=== PATIENT | male | born 1940 | race Caucasian/White ===

== ENCOUNTER → 2016-11-01 | Outpatient (CLI) | payer MEDICARE | END | disposition home or self-care (01) | LOC: EDT 09:00 | DX: E11.9 Type 2 diabetes mellitus without complications (principal); Z71.3 Dietary counseling and surveillance ==

== ENCOUNTER 2016-11-18 06:12 | Day surgery (SDC) | payer MEDICARE ==
[~2016-11-18] VITALS: Ht 188 cm; Wt 145.7 kg
--- NOTE | ~2016-11-18 | CATH ---
Cardiac Diagnostic Report Demographics Patient Name KAM Leigh Gender Male Date of 1940 Age 75 year(s) Patient Number [id number] Date of Study 11/18/2016 Visit Number [id number] Room Number Corporate ID Ht 187.96 cm Wt 146.51 kg Accession Number [id number] BSA 2.66 m kg/m Referring Gustavo Joiner MD Primary Physician Physician Jesus Lira MD Secondary Physician Physician Kwan Diagnostic Soraya PUENTES Assisting Physician Physician Kwan Interventional Soraya PUENTES Physician Manager Intelligence Physician Kwan Findings and Conclusions Diagnostic Findings and Conclusion 1. Severe 3 vessel CAD Diagnostic Recommendations 1. CT surgery consultation Procedure Description The patient was brought to the diagnostic cardiac catheterization laboratory in the fasting, non-sedated state. Informed consent was obtained in the written and verbal form after the risks and benefits were explained. The patient had no further questions and agreed to proceed. The planned puncture-incision site(s) were shaved and prepped with ChloraPrep and draped in the usual sterile manner. Conscious sedation, supplemental oxygen, and pain control medications were delivered by a registered nurse under physician guidance. Surface ECG rhythm, blood pressure measurement, and pulse oximetry were monitored throughout the procedure. Arterial access. The right radial access site was infiltrated with lidocaine. The vessel was entered with the Seldinger technique. A 6F sheath was advanced into the vessel and used for catheter placement. Radial cocktail administered per protocol. Unable to advance wire/catheter via radial approach, proceed to femoral approach. Arterial access. The right femoral access site was infiltrated with lidocaine. The vessel was entered with the Seldinger technique. A 5F sheath was advanced into the vessel and used for catheter placement. Selective left coronary angiography. A FL4 catheter was advanced into the left coronary vessel ostium under Fluoroscopic guidance. Contrast was injected by hand. Images were obtained in multiple projections. Left heart catheterization. A JR4 catheter was advanced across the aortic valve to the left ventricle under fluoroscopic guidance. Resting hemodynamics were obtained. Selective right coronary angiography. A JR4 catheter was advanced into the right coronary vessel ostium under fluoroscopic guidance. Contrast was injected by hand. Images were obtained in multiple projections. Radial arterial hemostasis was achieved with a TR band. Femoral arterial hemostasis was achieved with manual compression. The patient was transferred to outpatient recovery via cart accompanied by a nurse. The patient left the laboratory in stable condition. Diagnostic Cath Status: Elective Procedure Procedure Type Diagnostic procedure:Angiography:, Coronary Angios /[facility] Indications: Hyperlipidemia, Hypertension, Prior PCI with stent placement, Atrial fibrillation, Dyspnea, Obesity, Family history of coronary artery disease, Previous CT and Diabetes. The procedure was explained in detail to the patient. Risks, complications and alternative treatments were reviewed. Written consent was obtained. Medications Reviewed with Patient prior to Procedure. Complications: No Complication. Angiographic Findings Dominance: Right Cardiac Arteries and Lesion Findings LMCA: Abnormal. Lesion on LMCA: Distal subsection.30% stenosis . LAD: Abnormal. Lesion on Prox LAD: 80% stenosis .The lesion was heavily calcified. Lesion on Mid LAD: 70% stenosis . Lesion on Dist LAD: 40% stenosis . LCx: Abnormal. Lesion on Mid CX: 70% stenosis . Lesion on 1st Ob Shy% stenosis . RCA: Abnormal.There is a previous stent on Dist RCA. There is a previous stent on Mid RCA. Lesion on Prox RCA: Ostial.100% stenosis . Ramus: Abnormal. Lesion on Ramus: Proximal subsection.70% stenosis . Cardiac Collaterals - collateral flow from the Dist LAD to the Prox RCA. Coronary Tree Procedure Data Procedure Date Date: 11/18/2016Start: 07:59 End: 08:56 Entry Locations - Percutaneous access was performed through the Right Radial artery. A 6 Fr sheath was inserted. Hemostasis was successfully obtained using a TR band. - Percutaneous access was performed through the Right Femoral artery (Primary location). A 5 Fr sheath was inserted. Hemostasis was successfully obtained using Manual Compression. Procedure Medications Order and Administration + + +-------+-------+ !Time !Medication !Dosage !Route ! + + +-------+-------+ !11/18/2016 !Versed !1 mg !I.V. ! !08:01 ! ! ! ! + + +-------+-------+ !11/18/2016 !Fentanyl !25 mcg !I.V. ! !08:01 ! ! ! ! + + +-------+-------+ !11/18/2016 !Sodium Chloride !10 ml !I.V. ! !08:01 ! ! ! ! + + +-------+-------+ !11/18/2016 !SF Radial Cocktail: 200mcg Nitro, 2.5 mg ! !I.A. ! !08:07 !Verapamil, 5000u Heparin ! ! ! + + +-------+-------+ !11/18/2016 !Versed !1 mg !I.V. ! !08:08 ! ! ! ! + + +-------+-------+ !11/18/2016 !Fentanyl !25 mcg !I.V. ! !08:08 ! ! ! ! + + +-------+-------+ !11/18/2016 !Oxygen !2 l/min!NC ! !08:19 ! ! ! ! + + +-------+-------+ Devices Used - A6F TIG CATHETERwas used for:Coronary Angios.Unable to cannulate the vessel. - ACATH 5FR MULTIPACK CATHETERSwas used for:Coronary Angios. - ACATH 5FR MULTIPACK CATHETERSwas used for:LV Pressures. Contrast Material - Isovue 20070 ml Fluoroscopy Time: Diagnostic: 6:18 minutes. Total: 6:18 minutes. Fluoroscopy Dose: Diagnostic: 1166 mGy. Total: 1166 mGy. Estimated Blood Loss: 10 ml. Medical History Allergies - No known allergies. Risk Factors The patient risk factors include:prior PCI on 02/04/2003;obesity, treated hypercholesterolemia, treated hypertension, orally-treated diabetes mellitus, last creatinine: 1.2 mg/dl, creatinine clearance: 110.22 ml/min, dyslipidemia, former tobacco use, prior heart failure and prior CT . Admission Data Admission Date: 11/18/2016 Admission Time: 06:12 Insurance Payors: Medicare. Clinical Evaluation Leading to Procedure Diagnosed on 11/14/2016 12:00 . - Anti-anginal medications were prescribed during the past two weeks. The medication is: Beta Blockers. - The patient has been in a state of heart failure within the past two weeks. - The patient shows CHF symptoms of ODOM. - The reason for the patient's chemical laboratory scientist visit is evaluation of cardiomyopathy and/or evaluation of left ventricular systolic dysfunction. Hemodynamics Condition: Rest O2 Consumption: Estimated: 295.02Heart Rate: 59 bpm Pressures (mmHg) +-----+ + !Site !Pressure ! +-----+ + !AO !83/46 (60) ! +-----+ + !LV !102/12 ,20 ! +-----+ + !AO !90/44 (64) ! +-----+ + !LV !95/7 ,14 ! +-----+ + Valve Gradients and Areas + +---------+---------+---------+ +---------+ + !Valve !Peak !Mean !Area !Index !Flow !Source ! + +---------+---------+---------+ +---------+ + !Aortic !4 !5 ! ! ! ! ! + +---------+---------+---------+ +---------+ + !Aortic !4 !5 ! ! ! ! ! + +---------+---------+---------+ +---------+ + Shunts Oxygen Values O2 Capacity 214.88 O2 Consumption 295.02 Signatures
== END 2016-11-18 12:30 | disposition home or self-care (01) ==
LOC: SSS 06:12
DX: I25.10 Atherosclerotic heart disease of native coronary artery without angina pectoris (principal); I48.2 Chronic atrial fibrillation; I11.0 Hypertensive heart disease with heart failure; I50.32 Chronic diastolic (congestive) heart failure; I42.9 Cardiomyopathy, unspecified; M19.90 Unspecified osteoarthritis, unspecified site; E03.9 Hypothyroidism, unspecified; E66.9 Obesity, unspecified; Z79.82 Long term (current) use of aspirin; Z79.899 Other long term (current) drug therapy; Z96.651 Presence of right artificial knee joint; Z87.891 Personal history of nicotine dependence; Z96.643 Presence of artificial hip joint, bilateral

== ENCOUNTER → 2016-11-26 | Outpatient (CLI) | payer MEDICARE | END | disposition home or self-care (01) | LOC: RAD.S 12:51 | DX: Z01.818 Encounter for other preprocedural examination (principal); R06.02 Shortness of breath; J84.10 Pulmonary fibrosis, unspecified; I51.7 Cardiomegaly; I25.10 Atherosclerotic heart disease of native coronary artery without angina pectoris ==

== ENCOUNTER → 2016-11-29 | Outpatient (CLI) | payer MEDICARE | END | disposition home or self-care (01) | LOC: RAD.S 09:00 | DX: Z01.818 Encounter for other preprocedural examination (principal); R06.02 Shortness of breath; I25.10 Atherosclerotic heart disease of native coronary artery without angina pectoris; I51.7 Cardiomegaly; Q24.8 Other specified congenital malformations of heart ==

== ENCOUNTER → 2016-12-05 | Outpatient (CLI) | payer MEDICARE ==
--- NOTE | 2016-12-16 13:55 | SS ---
ADMIT: 12/05/2016 RM/LOC: [facility] MR#: [id number] [address] [id number] [place] [address] [place] [id number] Sleep Study SEX: M AGE: 75 : 1940 STUDY DATE: 12/05/2016 CLINICAL HISTORY: A 75-year-old male, body mass index of 39.9, 74 inches tall, 311 pounds, who has known history obstructive sleep apnea, in the sleep lab for CPAP titration. TECHNICAL DESCRIPTION: CPAP titration performed on night of 12/05/2016, attended by a trained electroencephalographic technologist. TITRATION FINDINGS: TITRATION DESCRIPTION: The patient was titrated from 12 cm of CPAP to 16 cm of CPAP. ResMed AirFit F20 large full-face mask was used. SLEEP: Total time in bed is 363 minutes, total sleep time 195 minutes. Sleep efficiency 53.7%. 49.6% of time was spent in stage II sleep, 16.5% of time was spent in stage REM. BREATHING: The patient had excellent resolution of obstructive sleep apnea on CPAP 16 cm. The patient was seen in REM sleep in supine position. There was some occasional hypopneas noted at this ending pressure. OXYGEN SATURATION: Mean sleeping 92%. CARDIAC: Average heart rate is 52 beats per minute. MOVEMENTS/POSITION: During the study, the patient slept in the supine lateral position with a periodic limb movement index of 82.8. IMPRESSION/PLAN: Recommend using CPAP 16 cm with mask as mentioned above. Recommend losing weight, avoiding sedatives or alcohol. Refrain from driving if excessively sleepy. Recommend avoiding sleeping in supine position. Clinical correlation needed. CPAP compliance followup is recommended. Of note, there were only occasional hypopneas seen at the ending pressure of CPAP 16 cm. Joce Manuel MD/ yovanny JOB #: [id number] CC: Milan Chen MD, Attending Physician Milan Chen MD, Family Physician Milan Chen MD
== END | disposition home or self-care (01) ==
LOC: RESC 20:06
DX: G47.33 Obstructive sleep apnea (adult) (pediatric) (principal); E66.9 Obesity, unspecified